=== PATIENT | female | born 1995 | race Caucasian/White ===

== ENCOUNTER 2025-02-06 16:47 | Emergency (ER) | payer BC, SELFPAY ==
[2025-02-06 17:17] VITALS: BP 117/67; PULSE 75; RESP 16; TEMP 37.1; O2SAT 99; BMI 32.8
== END 2025-02-06 17:38 | disposition left against medical advice (07) ==
PROVIDERS: Emergency Provider Student in an Organized Health Care Education/Training Program
DX: Z53.21 Procedure and treatment not carried out due to patient leaving prior to being seen by health care provider (principal)
CPT/HCPCS: 99281